=== PATIENT | male | born 1985 | race Caucasian/White ===

== ENCOUNTER 2018-01-05 00:35 | Inpatient (IN) | payer BC, OTHER ==
[~2018-01-05] VITALS: Ht 185.4 cm; Wt 60.8 kg
[2018-01-05] MEDS ORDERED: DICYCLOMINE HCL 20 MG TABLET PO PRN (00:45)
[2018-01-05] MEDS ORDERED: ONDANSETRON 4 MG/2 ML VIAL IM PRN (00:45)
[2018-01-05] MEDS ORDERED: MAG HYDROX/AL HYDROX/SIMETH 30 ML LIQUID UDC PO PRN (00:45)
[2018-01-05] MEDS ORDERED: LOPERAMIDE HCL 2 MG CAPSULE PO PRN ×2 (00:45)
[2018-01-05] MEDS ORDERED: diphenhydrAMINE 50 MG CAPSULE PO PRN ×2 (00:45→11:15)
[2018-01-05] MEDS ORDERED: MIRALAX 17 GM POWD.PACK PO PRN (00:45)
[2018-01-05] MEDS ORDERED: MAGNESIUM HYDROXIDE 30 ML LIQUID UDC PO PRN (00:45)
[2018-01-05] MEDS ORDERED: ONDANSETRON ODT 4 MG TAB.RAPDIS SL PRN (00:45)
[2018-01-05] MEDS ORDERED: LORAZEPAM 2 MG/1 ML VIAL IM PRN (00:45)
[2018-01-05] MEDS ORDERED: ACETAMINOPHEN 325 MG TABLET PO PRN (00:45)
[2018-01-05] MEDS ORDERED: CLONIDINE HCL 0.1 MG TABLET PO PRN ×2 (00:45→11:15)
[2018-01-05] MEDS ORDERED: IBUPROFEN 400 MG TABLET PO PRN (00:45)
[2018-01-05] MEDS ORDERED: LORAZEPAM 1 MG TABLET PO PRN (00:45)
[2018-01-05 01:53] LABS: HEMATOCRIT 44.2 % (40-50); HEMOGLOBIN 15.3 G/DL (14.0-18.0); MEAN CORPUSCULAR HEMOGLOBIN 30.7 UUG (27.0-31.0); MEAN CORPUSCULAR VOLUME 88.6 FL (82.0-92.0); RED BLOOD CELL COUNT(AUTO) 4.98 MIL/UL (4.7-6.1); WHITE BLOOD COUNT (AUTO) 7.5 K/UL (4.0-11.2)
[2018-01-05 01:54] LABS: BASOPHILS % (AUTO) 0.2 % (0.0-2.0); EOSINOPHILS % (AUTO) 2.2 % (0.0-7.0); LYMPHOCYTES % (AUTO) 19.3 % (20.5-51.5); MEAN CORPUSCULAR HGB CONC 35 g/dL (32.0-37.0); MONOCYTES % (AUTO) 8.5 % (0.0-11.0); NEUTROPHILS % (AUTO) 69.8 % (38.5-71.5); PLATELET COUNT (AUTO) 210 K/UL (150-450)
[2018-01-05] MEDS: LORAZEPAM 1 MG TABLET PO PRN ×3 (01:54→17:55)
[2018-01-05] MEDS: METHOCARBAMOL 750 MG TABLET PO PRN ×3 (01:54→17:55)
[2018-01-05 01:55] LABS: ALANINE AMINOTRANSFERASE 122 U/L (16-63); ALKALINE PHOSPHATASE 95 U/L (50-136); AMYLASE 25 U/L (25-115); ASPARTATE AMINOTRANSFERASE 44 U/L (15-37); BILIRUBIN,TOTAL 0.3 mg/dL (0.2-1.0); CARBON DIOXIDE 28 mmol/L (21-32); CHLORIDE 100 mmol/L (98-107); GLUCOSE 139 mg/dL (74-106); LIPASE 85 U/L (73-393); POTASSIUM 3.4 mmol/L (3.5-5.1); TOTAL PROTEIN, SERUM 7.5 g/dL (6.4-8.2); UREA NITROGEN, BLOOD 14 mg/dL (7-18)
[2018-01-05 02:09] LABS: ETHANOL < 3 MG/DL (0-0)
[2018-01-05] MEDS ORDERED: NAPR1TAB28 PO (02:50)
[2018-01-05] MEDS ORDERED: BUPR1FIL3 SL (02:50)
[2018-01-05] MEDS ORDERED: MILK175C4 PO (02:50)
[2018-01-05] MEDS ORDERED: NAPH10DR OP (02:50)
[2018-01-05 03:23] LABS: *AMPHETAMINE, URINE NEGATIVE (NEGATIVE); *BARBITURATE, URINE NEGATIVE (NEGATIVE); *CANNABINOID, URINE NEGATIVE (NEGATIVE); *COCCAINE, URINE POSITIVE (NEGATIVE); *OPIATE, URINE POSITIVE (NEGATIVE); *PHENCYCLIDINE SCREEN,URINE NEGATIVE (NEGATIVE)
[2018-01-05 04:00] VITALS: BP 123/58
[2018-01-05 08:00] VITALS: BP 130/74
[2018-01-05] MEDS ORDERED: POTASSIUM CHLORIDE 10 MEQ TAB.PRT.SR PO ONE (09:45)
[2018-01-05] MEDS: MULTIVITAMINS,THERAPEUTIC TABLET PO SCH (10:02)
[2018-01-05] MEDS ORDERED: IBUPROFEN 600 MG TABLET PO PRN (11:15)
[2018-01-05] MEDS ORDERED: PANTOPRAZOLE SODIUM 40 MG TABLET.DR PO PRN (11:30)
[2018-01-05] MEDS: LORAZEPAM 1 MG TABLET PO SCH ×3 (11:49→20:24)
[2018-01-05 12:00] VITALS: BP 107/58
[2018-01-05] MEDS: BUPRENORPHINE HCL 2 MG TAB.SUBL SL SCH ×2 (15:02→20:23)
[2018-01-05 16:00] VITALS: BP 119/64
[2018-01-05] MEDS: BUPRENORPHINE HCL 2 MG TAB.SUBL SL PRN (17:01)
[2018-01-05 20:00] VITALS: BP 127/68
[2018-01-05] MEDS: GABAPENTIN 300 MG CAPSULE PO SCH (20:23)
[2018-01-05] MEDS ORDERED: QUETIAPINE FUMARATE 100 MG TABLET PO SCH (21:00)
[2018-01-06] VITALS: BP 130/66
[2018-01-06] MEDS: BUPRENORPHINE HCL 2 MG TAB.SUBL SL PRN (00:33)
[2018-01-06 04:00] VITALS: BP 126/68
[2018-01-06 08:00] VITALS: BP 109/73
[2018-01-06] MEDS: GABAPENTIN 300 MG CAPSULE PO SCH (08:13)
[2018-01-06] MEDS: METHOCARBAMOL 750 MG TABLET PO PRN ×2 (08:13→16:44)
[2018-01-06] MEDS: BUPRENORPHINE HCL 2 MG TAB.SUBL SL SCH ×2 (08:14→14:33)
[2018-01-06] MEDS: LORAZEPAM 1 MG TABLET PO SCH ×2 (08:14→14:33)
[2018-01-06] MEDS: MULTIVITAMINS,THERAPEUTIC TABLET PO SCH (08:14)
[2018-01-06] MEDS ORDERED: TUBERCULIN,PURIF.PROT.DERIV. 5 TU/0.1 ML TEST ID ONE (09:00)
[2018-01-06 12:00] VITALS: BP 131/77
[2018-01-06] MEDS ORDERED: KETOROLAC TROMETHAMINE 30 MG INJ IM PRN (12:15)
[2018-01-06 13:06] LABS: HEPATITIS B SURFACE AG Negative (Negative)
[2018-01-06] MEDS ORDERED: GABAPENTIN 300 MG CAPSULE PO SCH (15:00)
[2018-01-06] MEDS: LORAZEPAM 1 MG TABLET PO PRN (16:44)
[2018-01-06 16:50] VITALS: BP 116/63
[2018-01-06] MEDS ORDERED: QUETIAPINE FUMARATE 200 MG TABLET PO SCH (21:00)
[2018-01-06] MEDS ORDERED: QUETIAPINE FUMARATE 100 MG TABLET PO SCH (21:00)
[2018-01-07] MEDS ORDERED: LORAZEPAM 1 MG TABLET PO SCH (09:00)
[2018-01-07] MEDS ORDERED: BUPRENORPHINE HCL 2 MG TAB.SUBL SL SCH ×2 (09:00→15:00)
[2018-01-08] MEDS ORDERED: BUPRENORPHINE HCL 2 MG TAB.SUBL SL SCH (09:00)
[2018-01-08] MEDS ORDERED: LORAZEPAM 1 MG TABLET PO SCH (09:00)
[2018-01-09] MEDS ORDERED: LORAZEPAM 1 MG TABLET PO SCH (09:00)
[2018-01-09] MEDS ORDERED: BUPRENORPHINE HCL 2 MG TAB.SUBL SL SCH (09:00)
== END 2018-01-06 19:21 | disposition left against medical advice (07) | DRG 894 ==
LOC: SRC 00:35
PROVIDERS: ADMIT Internal Medicine; ATTEND Internal Medicine
PROC: HZ2ZZZZ Detoxification Services for Substance Abuse Treatment (ICD-10-PCS; principal; 2018-01-05)
PROC: HZ51ZZZ Individual Psychotherapy for Substance Abuse Treatment, Behavioral (ICD-10-PCS; 2018-01-06)
DX: F13.232 Sedative, hypnotic or anxiolytic dependence with withdrawal with perceptual disturbance (principal); F14.20 Cocaine dependence, uncomplicated; E87.6 Hypokalemia; F12.10 Cannabis abuse, uncomplicated; F17.210 Nicotine dependence, cigarettes, uncomplicated; Z91.89 Other specified personal risk factors, not elsewhere classified; K21.9 Gastro-esophageal reflux disease without esophagitis; F41.9 Anxiety disorder, unspecified; F11.23 Opioid dependence with withdrawal; Z91.19 Patient's noncompliance with other medical treatment and regimen; F31.9 Bipolar disorder, unspecified; K58.9 Irritable bowel syndrome, unspecified; Z59.1 Inadequate housing; G47.00 Insomnia, unspecified; R73.9 Hyperglycemia, unspecified; E07.81 Sick-euthyroid syndrome; Z20.5 Contact with and (suspected) exposure to viral hepatitis; E05.90 Thyrotoxicosis, unspecified without thyrotoxic crisis or storm
CPT/HCPCS: 36415; 80307; 80346; 80353; 80361; 83690; 83735; 84443; 85025; 86580; 86592; 86705; 86803; 87340; 87806; G0480; J1885; Q0163